=== PATIENT | female | born 1985 | race Caucasian/White ===

== ENCOUNTER → 2019-12-30 | Outpatient (CLI) | payer OTHER ==
[2019-12-30 19:05] LABS: ALT 52 U/L (8-44); AST 51 U/L (13-35); African American GFR (CKD) 112.3 (60.0-200.0); Glucose 90 mg/dL (70-110); Non-African American GFR(CKD) 96.9 (60.0-200.0)
[2019-12-30 19:13] LABS: Estradiol 59.8 pg/mL; Prolactin 4.3 ng/mL (2.8-29.2); Thyroid Peroxidase Antibodies 48.6 U/mL (0.0-60.0)
[2019-12-30 19:15] LABS: Follicle Stimulating Hormone 8.8 mIU/mL
[2019-12-30 20:04] LABS: HIV 2 AB Non-Reactive (Non-Reactive); HIV AB P24 Non-Reactive (Non-Reactive); HIV P24 AG Non-Reactive (Non-Reactive)
[2019-12-30 20:34] LABS: HCG,Quantitative Serum <2.0 mIU/mL
[2019-12-30 21:16] LABS: Hemoglobin A1C 5.4 % (4.0-6.0)
[2019-12-31 13:21] LABS: Hepatitis A Antibody IgM Non-Reactive (Non-Reactive); Hepatitis B Core IgM Non-Reactive (Non-Reactive); Hepatitis B Surface Antigen Non-Reactive (Non-Reactive); Hepatitis C IgG Antibody Non-Reactive (Non-Reactive)
== END | disposition home or self-care (01) ==
LOC: LABWHC1 11:48 → MERGE 11:48
PROVIDERS: ATTEND Obstetrics & Gynecology Reproductive Endocrinology
DX: E28.39 Other primary ovarian failure (principal)
CPT/HCPCS: 36415; 80074; 82306; 82397; 82565; 82670; 82947; 83001; 83036; 83525; 84146; 84403; 84439; 84443; 84450; 84460; 84520; 84702; 86376; 86762; 86780; 86787; 86850; 86900; 86901; 87390

== ENCOUNTER → 2022-08-08 | Outpatient (CLI) | payer OTHER ==
[2022-08-08 16:09] LABS: Basophils # (A) 0.05 X 10*3/uL; Basophils % (A) 0.8 %; Eosinophils # (A) 0.19 X 10*3/uL; HGB 13.9 d/dL; Lymphocytes # (A) 1.61 X 10*3/uL; Lymphocytes % (A) 25.6 %; MCH 31.1 pg; MCHC 32.3 d/dL; MCV 96.2 FL; Mean Platelet Volume 9.6 FL; Monocytes # (A) 0.58 X 10*3/uL; Monocytes % (A) 9.2 %; NRBC Per 100 WBC 0 X 10*3/uL; Neutrophils # (A) 3.84 X 10*3/uL; Neutrophils % (A) 61.1 %; Platelet Count 267 X 10*3/uL; RBC 4.47 X 10*6/uL; RDW 12.7 %; WBC 6.29 X 10*3/uL
== END | disposition home or self-care (01) ==
LOC: LABPAT 11:02
PROVIDERS: ATTEND Obstetrics & Gynecology
DX: Z01.812 Encounter for preprocedural laboratory examination (principal)
CPT/HCPCS: 36415; 85025

== ENCOUNTER 2022-08-09 05:42 | Day surgery (SDC) | payer OTHER ==
[2022-08-04 18:13] VITALS: BMI 22.0
--- NOTE | 2022-08-08 13:59 | P.HPOB ---
History of Present Illness H&P Date: 08/08/22 Chief Complaint: Missed , 6 weeks This patient is a pleasant 37 yr female estimated gestational age ~6 weeks who has been followed by her automated process operator for . Patient had and embryo transfer done and initially her HCG levels were rising a ppropriately. Unfortunately, serial ultrasounds now show a non-viable 6 week . I was contacted by her physician in regards to this. Apparently they only treat infertility and do not manage missed abortions. She was therefore referred to me. Patient was given options: expectant vs. suction D&C and she wishes to proceed with a D&C. Review of Systems Constitutional: Reports as per HPI Genitourinary: Reports as per HPI, Reports Menstruation: Reports amenorrhea Past Medical History Past Medical History: Skin Disorder Additional Past Medical History / Comment(s): Hx heart murmur as a child, now resolved. Psoriasis, eczema. History of Any Multi-Drug Resistant Organisms: None Reported Additional Past Surgical History / Comment(s): 3 procedures for endometriosis-2 laproscopic and 1 open, hysteroscopy Past Anesthesia/Blood Transfusion Reactions: No Reported Reaction, Motion Sickness Past Psychological History: No Psychological Hx Reported Smoking Status: Never smoker Past Alcohol Use History: Rare Past Drug Use History: None Reported - Past Family History Mother Family Medical History: Cancer Additional Family Medical History / Comment(s): Breast cancer. Father Additional Family Medical History / Comment(s): Lymphoma. Medications and Allergies Home Medications Medication Instructions Recorded Confirmed Type Loratadine [Claritin] 10 mg PO DAILY 08/04/22 08/04/22 History Allergies Allergy/AdvReac Type Severity Reaction Status Date / Time No Known Allergies Allergy Verified 08/04/22 18:08 Exam - OBG Physical Exam Abdomen: bowel sounds normal, no diffuse tenderness, no bruit present, no guarding noted, no hepatomegaly, no splenomegaly, no mass Vulva: both: normal Vagina: normal moisture, no discharge Cervix: no lesion, no discharge Uterus: normal size, normal contour Results Serial ultrasounds show a non-viable IUP approximately ~6 weeks. Assessment and Plan Assessment: This is a pleasant 37 yr female approximately 6 weeks with missed requesting suction D&C for treatment. I have discussed the surgery and risks: infection, bleeding, and/or possible uterine perforation. All of her questions were answered and a written consent obtained. (1) Missed Status: Acute Code(s): O02.1 - MISSED SNOMED Code(s): 09573038
[~2022-08-09 05:42] MED LIST: Pre Op ABX Message 1 EACH MISC MISCELLANE ONE
[2022-08-09] MEDS ORDERED: LACTATED RINGERS 1,000 ML IV ONE (06:25)
[2022-08-09] MEDS ORDERED: ONDANSETRON 4 MG/2 ML VIAL ONE (06:34)
[2022-08-09] MEDS ORDERED: ONDANSETRON 4 MG/2 ML VIAL IVP ONE (06:40)
[2022-08-09] MEDS ORDERED: DEXAMETHASONE SOD PHOSPHATE 4 MG/ML 1 ML VIAL IVP ONE (06:41)
[2022-08-09] MEDS ORDERED: SCOPOLAMINE 1 MG/72 HR PATCH TRANSDERM ONE (06:42)
[2022-08-09] MEDS ORDERED: PROPOFOL 10 MG/ML 20 ML VIAL IV ONE (06:43)
[2022-08-09] MEDS ORDERED: MIDAZOLAM 2 MG/2 ML VIAL ONE (06:43)
[2022-08-09] MEDS ORDERED: LIDOCAINE 2% INJ 20 MG/ML (2 ML VIAL) ONE (06:43)
[2022-08-09] MEDS ORDERED: fentaNYL (PF) 50 MCG/ML 2 ML AMP ONE (06:43)
[2022-08-09] MEDS ORDERED: KETOROLAC 15 MG/ML 1 ML VIAL ONE (06:43)
--- NOTE | 2022-08-09 07:23 | P.OP ---
Date of Procedure: 08/09/22 Preoperative Diagnosis: Missed 6 weeks Postoperative Diagnosis: Same Procedure(s) Performed: Suction D&C Anesthesia: other (LMA) Surgeon: Zhen Farrell Estimated Blood Loss (ml): 25 Urine output (ml): 100 Pathology: other (Products of conception) Condition: stable Disposition: PACU Indications for Procedure: Please see dictated H&P for intimate details of this patient's admission. In brief summary this pleasant 37-year-old 4 para 0 female estimated gestational age 6 weeks based on her embryo transfer who presents for suction D&C due to missed . Patient I discussed the surgery and risks and risks of infection, bleeding, possible uterine perforation. All the patient's questions are answered and a written consent is obtained. Operative Findings: This patient had uterine contents consistent with products of conception Description of Procedure: This patient is taken to the operating room where she is laid in the supine position. She subsequently undergoes general anesthesia without incident. After the appropriate timeout, patient has a perineal vaginal prep and drape. She is placed in the dorsal lithotomy position. Examination under anesthesia shows a mid position uterus slightly enlarged. I first drain the bladder for 100 mL of clear urine. Weighted speculum was placed in the posterior vagina. Anterior lip of the cervix was grabbed with an Allis clamp. Gentle dilation is then done to allow a 8 curved suction curette easily uterine cavity. Suction is applied and a large amount of tissue is removed. Multiple passes are made until no further tissue was noted. A gentle but thorough 4 quadrant curettage then done and all tissue appears to be removed. There is minimal bleeding. This point the procedure is ended. The weighted speculum and Allis clamp are removed. All counts are correct 3. There are no complications. Patient's week from anesthesia and taken recovery room satisfactory condition.
[2022-08-09 07:29] VITALS: TEMP 96.9
[2022-08-09 08:01] VITALS: RESP 16
[2022-08-09 08:34] VITALS: BP 108/72; PULSE 64
== END 2022-08-09 08:45 | disposition home or self-care (01) ==
LOC: OR 05:42
PROVIDERS: ATTEND Obstetrics & Gynecology
DX: O02.1 Missed abortion (principal); Z3A.01 Less than 8 weeks gestation of pregnancy; Z86.59 Personal history of other mental and behavioral disorders; Z80.3 Family history of malignant neoplasm of breast; Z79.899 Other long term (current) drug therapy
CPT/HCPCS: 86900; 86901; 86850; 59820; J2250; J1100; J2405; J3010; J1885; J2704; J2001; 88305